=== PATIENT | female | born 2000 | race Hispanic/Latino ===

== ENCOUNTER 2018-11-08 06:43 | Outpatient (CLI) | payer OTHER ==
[2018-11-08 07:04] VITALS: BP 122/67
--- NOTE | 2018-11-08 08:33 | Event Note ---
Date: 11/08/18 Pt presents to triage with c/o cramping and abdominal pain. Reports slipping and falling down stairs at 10pm last night, but did not call provider or present to triage for evaluation d/t "not hurting". Pt reports intercourse at 1 am and noting small "quarter size" light pink vaginal bleeding after. Pt reports awaking again at 5 am and noting more, now red, vaginal bleeding, mild cramping at this time. Pt denies any LOF and reports +FM. Order for and uterine monitoring x2 hours, US for placental evaluation. Blood type is O+. SVE at curr ent /-3, membranes intact, small amount of light red blood noted on exam glove. Will continue to monitor.
[2018-11-08] MEDS ORDERED: LACTATED RINGERS 1,000 ML IV ONE (09:30)
--- NOTE | 2018-11-08 11:07 | Ultrasound Report ---
ULTRASOUND OB LIMITED History: Status post fall Technique: Transabdominal ultrasound with Doppler interrogation. Gestation: Single Position: Cephalic Amniotic Fluid: Appears decreased JENIFER = not measured Placenta: Anterior Placental Grade: 1 Heart Rate: 123 BPM Cervical length: Obscured
== END 2018-11-08 10:35 | disposition home or self-care (01) ==
LOC: TRG 06:43
PROVIDERS: ATTEND Obstetrics & Gynecology
DX: O47.1 False labor at or after 37 completed weeks of gestation (principal); O99.513 Diseases of the respiratory system complicating pregnancy, third trimester; J45.909 Unspecified asthma, uncomplicated; Z3A.39 39 weeks gestation of pregnancy
CPT/HCPCS: 59025; 76815

== ENCOUNTER 2018-11-18 08:40 | Inpatient (IN) | payer OTHER ==
--- NOTE | 2018-11-18 09:29 | History and Physical Report ---
History of Present Illness Date of examination: 11/18/18 Date of admission: 11/18/2018 Chief complaint: contractions History of present illness: Menstrual History Regularity: regular Menses every: irregular days Duration: 3 LMP: 01/21/2018 LMP reliability: month known LMP character: normal test type: urine test Date: 04/19/2018 BC at conception: none Planned ? yes EDC Calculations Past History : 2 Term Births: 0 Premature Births: 0 Living Children: 0 Para: 0 Aborta: 1 Spont. Ab: 1 # 1 Delivery date: 2015 Weeks Gestation: 14 Delivery type: SAB Delivery location: [place] Comments: No D&C Past Medical History: PCOS Endometriosis Hypoglycemia Past Surgical History: Negative Past Surgical History Family History Summary: Other family member - Has No Family History of Uterine Cancer - Entered On: 04/19/2018 Other family member - Has No Family History of Stomach Cancer - Entered On: 04/19/2018 Other family member - Has No Family History of Small Bowel Cancer - Entered On: 04/19/2018 Other family member - Has No Family History of Pancreatic Cancer - Entered On: 04/19/2018 Other family member - Has No Family History of Ovarvian Cancer - Entered On: 04/19/2018 Other family member - Has No Family History of Kidney/Urinary Tract Cancer - Entered On: 04/19/2018 Other family member - Has No Family History of Colon Cancer - Entered On: 04/19/2018 Other family member - Has No Family History of Breast Cancer - Entered On: 04/19/2018 Other family member - Has No Family History of Brain Cancer - Entered On: 04/19/2018 Other family member - Has No Family History of Biliary Tract Cancer - Entered On: 04/19/2018 Mother (biol.) - Has Family History of Spontaneous DVT-PE - Entered On: 04/19/2018 MGM - Has Family History of Lung Cancer - Entered On: 04/19/2018 General Comments - FH: Maternal aunt Back cancer maternal aunt NonHodgkins lymphoma Social History: Patient is single Smoking History: Patient currently smokes every day. Patient has been counseled to quit. Past Medical History Surgery (Non-authorization nurse): Negative Past Surgical History Abnormal PAP: negative Family Hx: Maternal aunt Back cancer maternal aunt NonHodgkins lymphoma Social Hx: Patient is single Smoking History: Patient currently smokes every day. Patient has been counseled to quit. Infection History Hx of STD: none Partner hx. of genital herpes: no Varicella/Chicken Pox Status: Immunized TB Risk: no Genetic History Congenital Heart Defect: Mom: no Dad: no Deysi Disease: Mom: no Dad: no Thalassemia Mom: no Dad: no Neural Tube Defect Mom: no Dad: no Down's Syndrome Mom: no Dad: no Rk-Sachs Mom: no Dad: no Sickle Cell Disease/Trait Mom: no Dad: no Hemophilia Mom: no Dad: no Muscular Dystrophy Mom: no Dad: no Cystic Fibrosis Mom: no Dad: no [place] Chorea Mom: no Dad: no Mental Retardation Mom: no Dad: no Fragile X Mom: no Dad: no Other Genetic/Chromosomal Disorder Mom: no Dad: no Child w/other defect Mom: no Dad: no Other: Autism Nephew and 1st coisin Enviromental Exposures Enviromental Exposures Reviewed Xray Exposure: no Medication, drug, or alcohol use since LMP: no Chemical/Other Exposure: no Exposure to Cat Liter: no Hx of Parvovirus (Fifth Disease): no Occupational Exposure to Children: none Comments: [email or web address], states she is exposed to her niece who is in Daycare Current Allergies (reviewed today): * BEE STINGS (Critical) Past History Past Medical History: other (see hpi) Past Surgical History: other (see hpi) 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 (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) Family/Genetic History: other (see hpi) Social history: other (see hpi) - Obstetrical History : 2 Para: 0 Medications and Allergies Allergies Allergy/AdvReac Type Severity Reaction Status Date / Time bee venom protein (honey bee) Allergy Unknown Verified 11/18/18 12:15 cyclobenzaprine AdvReac Unknown Verified 11/08/18 09:52 Home Medications Medication Instructions Recorded Confirmed Last Taken Type No Known Home Medications [No 07/23/18 11/08/18 Unknown History Reported Home Medications] Review of Systems All systems: negative (contractions, pain 5/10, "every 5-10 minutes") - Vital Signs Vital signs: Vital Signs Pulse BP 83 100/59 11/18/18 08:55 11/18/18 08:55 Temp Pulse Resp BP Pulse Ox 83 100/59 11/18/18 08:55 11/18/18 08:55 - Physical Exam Breasts: Positive: normal Cardiovascular: Regular rate, Normal S1, Normal S2 Lungs: Positive: Clear to auscultation Abdomen: Positive: normal appearance, soft, normal bowel sounds. Negative: distention, tenderness Genitourinary (Female): Positive: normal external genitalia, normal perenium Vulva: both: normal Vagina: Positive: normal moisture. Negative: discharge Cervix: Negative: lesion, discharge Uterus: Positive: normal size, normal contour Adnexa: both: normal Anus/Rectum: Positive: normal perianal skin, heme negative. Negative: rectal mass, hemorrhoids Extremities: Positive: normal Deep Tendon Reflex Grade: Normal +2 - Obstetrical FHR: auscultation normal, category 1 Uterine Contraction Monitor Mode: External Cervical Dilatation: 4 Cervical Effacement Percentage: 90 station: -2 Uterine Contraction Frequency (min): 3-6 Uterine Contraction Duration: 60-80 Uterine Contraction Pattern: Regular Uterine Tone Measurement Phase: Contraction Uterine Contraction Intensity: Mild Results Result Diagrams: 11/18/18 08:20 All other labs normal. Assessment and Plan 18 year old IUP at 40w4d presents to triage with c/o contractions "every 5- 10 minutes" since last night. Patient denies any LOF or vaginal bleeding. Reports +FM. SVE per manager corporate marketing /-2, category 1 tracing, ctx q3-5 minutes on TOCO, palpating mild-moderate. Admission orders placed. GBS negative. Anticipate .
[2018-11-18 09:58] LABS: Hemoglobin 12.2 gm/dl (10.1-14.3); Mean Corpuscular HGB Conc 33 % (30-34); Mean Corpuscular Volume 81 fl (79-97); Platelet Count 236 K/mm3 (140-440); Red Blood Count 4.58 M/mm3 (3.65-5.03); Red Cell Distribution Width 14.5 % (13.2-15.2)
[2018-11-18] MEDS ORDERED: ZOFRAN IV PRN (11:00)
[2018-11-18] MEDS ORDERED: BRETHINE IVP PRN (11:00)
[2018-11-18] MEDS ORDERED: PITOCin/NS 30 UNIT/500ML 30 UNITS/500 ML BAG IV SCH (11:00)
[2018-11-18] MEDS ORDERED: MINERAL OIL PO PRN (11:00)
[2018-11-18] MEDS ORDERED: XYLOCAINE 2% INFILTRATI NR (11:00)
[2018-11-18] MEDS ORDERED: LACTATED RINGERS 1,000 ML IV SCH ×2 (11:00→22:00)
[2018-11-18] MEDS ORDERED: PITOCin/NS 20 UNIT/1000ML DRIP 20 UNITS/1,000 ML BAG IV SCH (11:00)
[2018-11-18] MEDS ORDERED: BRETHINE SUB-Q PRN (11:00)
[2018-11-18] MEDS ORDERED: SUBLIMAZE IV PRN (11:00)
[2018-11-18] MEDS ORDERED: NARCAN 2 MG/2 ML IV PRN (12:16)
--- NOTE | 2018-11-18 12:16 | Anesthesia Consultation ---
Anesthesia Consult and Med Hx - Airway Anesthetic Teeth Evaluation: Good ROM Head & Neck: Adequate Mental/Hyoid Distance: Adequate Mallampati Class: Class III Intubation Access Assessment: Possibly Difficult - Pre-Operative Health Status ASA Pre-Surgery Classification: ASA3 Proposed Anesthetic Plan: Epidural, Spinal - Pulmonary Hx Smoking: Yes Hx Asthma: Yes (inhaler last used 1 month ago) - Cardiovascular System Hx Hypertension: No - Central Nervous System Hx Seizures: No Hx Psychiatric Problems: Yes (depression and anxiety) - Endocrine Hx Renal Disease: No Hx Hypothyroidism: No Hx Hyperthyroidism: No - Hematic Hx Anemia: No Hx Sickle Cell Disease: No - Other Systems Hx Alcohol Use: No Hx Obesity: Yes (BMI 44.8)
--- NOTE | 2018-11-18 12:55 | Event Note ---
Date: 11/18/18 Patient comfortable in bed s/p epidural placement. Pitocin currently infusing at 4mu/min. TOCO tracing irregular contractions, mild-moderate by palpation. Patient gives verbal consent for SROM and IUPC placement. SVE 5/100/-2, SROM performed, small amount of clear fluid noted. IUPC placed without difficulty. Will continue pitocin per order and current POC. Anticipate vaginal delivery.
[2018-11-18] MEDS: fentaNYL-BUPIV 2 MCG/ML-0.125% 200 MCG/100 ML BAG EPIDURAL SCH ×2 (13:07→21:09)
--- NOTE | 2018-11-18 17:44 | Event Note ---
Date: 11/18/18 variable decelerations noted. Pt lying flat on back in bed. Repositioned, pitocin decreased, FSE placed. SVE anterior lip, 0 station. FHTs recovering, no variable decelerations noted after interventions. Dr. Doll notified. Patient not feeling urge to push at this time, remains comfortable with epidural. Will continue to monitor.
[2018-11-18] MEDS ORDERED: XYLOCAINE MPF 2% ONE ×2 (20:22→22:45)
[2018-11-18] MEDS ORDERED: REGLAN IV ONE (21:48)
[2018-11-18] MEDS ORDERED: BICITRA PO ONE (21:48)
[2018-11-18] MEDS ORDERED: PEPCID IV ONE ×2 (21:48→21:50)
[2018-11-18] MEDS ORDERED: BICITRA ONE (21:50)
[2018-11-18] MEDS ORDERED: REGLAN ONE (21:50)
--- NOTE | 2018-11-18 21:58 | Event Note ---
Date: 11/18/18 Patient without change in cervix with repeated deep decelerations with pushing. Patient still at 0 station. Discussed with patient and indication for operative delivery.Patient informed the risks of the surgery include bleeding possibly bleeding heavy enough to require blood transfusion, infection possible damage to bowel bladder ureter. All questions answered. Patient agrees to proceed
[2018-11-18] MEDS ORDERED: ANCEF/STERILE WATER 2 GM/20 ML 2 GM/20 ML SYRINGE IV NR (22:00)
[2018-11-18] MEDS ORDERED: WATER FOR IRRIG STERILE IR ONE (22:33)
[2018-11-18] MEDS ORDERED: NACL 0.9% IR ONE (22:33)
[2018-11-18] MEDS ORDERED: ASTRAMORPH PF 10MG/10ML ONE (22:46)
--- NOTE | 2018-11-18 23:28 | Operative Report ---
Operative Report Operative Report: Date of procedure: 11/18/2018 Pre-operative diagnosis: Intrauterine at 40 weeks and 4 days. Failure of descent and nonreassuring heart tracing Post-operative diagnosis: Same Procedure name(s): Primary low transverse section Surgeon: Grabiel Doll MD Art Therapy Certified Supervisor: Anesthesia: Epidural EBL: 600 mL Complications: Laceration right uterine artery Findings: Patient with a normal uterus tubes and ovaries bilaterally. Female infant weight 7 lbs. 4 oz. Apgars 8 at 1 minute and 9 at 5 minutes Specimen(s): None Procedure: The patient was brought to the operating room. Her epidural was dosed without any complications. She was then placed in left lateral tilt. Prepped and draped in the usual sterile manner. After testing for adequate anesthesia level, a Pfannenstiel incision was made. This incision was taken down to the fascia. The fascia was then nicked in the midline. This incision was extended out laterally with Marie scissors. The fascia was then sharply and bluntly from the underlying rectus muscles. The rectus muscles were bluntly and sharply . The peritoneum was then entered with the needle punch operator's fingers. This incision was spread vertically with care not to damage the bladder below. The bladder flap was then formed sharply and bluntly with Metzenbaum scissors. The Ramón self-retaining tractor was then placed without any difficulty. A transverse incision was made in lower uterine segment. This incision was extended laterally with the operators fingers. The amniotic sac was then entered bluntly with the needle punch operator's fingers. The infant was deep in pelvis and delivered from the vertex position. Bulb suction on the mother's abdomen. Cord was double clamped and cut. The was then passed to the nursery personnel who were in attendance. The above scores were given by the nursery personnel. The placenta was then bluntly removed. The uterus was then externalized and wiped clean the remaining products. The laceration was identified and repaired with [id number] suture good hemostasis. The ne erine incision was closed in layers. The first incision was closed in a locking manner using 0 Vicryl. This was followed by imbricating stitch also with 0 Vicryl. This closure was hemostatic. The bladder flap was copiously irrigated and found to be hemostatic. The pelvis was copiously irrigated and found to be hemostatic. The uterus was then placed back to the patient's abdomen. The retractors were removed. The rectus muscles were inspected and found to be hemostatic. The fascia was then closed in a running manner using 0 Vicryl. This incision was hemostatic irrigation Bovie. The skin was reapproximated with 4-0 Vicryl subcuticularly. The patient tolerated procedure well. Her urine was clear. The infant was admitted to the well baby nursery. The patient was accompanied to recovery room in good condition. Instrument count correct times 3.
[2018-11-19] MEDS ORDERED: DILAUDID IM PRN (00:10)
[2018-11-19] MEDS ORDERED: DILAUDID IV PRN (00:10)
[2018-11-19] MEDS: TORADOL IV PRN ×2 (00:15→06:32)
[2018-11-19] MEDS ORDERED: TORADOL IV PRN (01:01)
[2018-11-19] MEDS ORDERED: MILK OF MAGNESIA PO PRN (01:01)
[2018-11-19] MEDS ORDERED: SODIUM CHLORIDE FLUSH SYRINGE 10 ML IV PRN (01:01)
[2018-11-19] MEDS ORDERED: LANSINOH TP PRN (01:01)
[2018-11-19] MEDS ORDERED: D5LR 1,000 ML IV SCH (01:01)
[2018-11-19] MEDS ORDERED: ZOFRAN IV PRN (01:01)
[2018-11-19] MEDS ORDERED: PITOCin/NS 20 UNIT/1000ML DRIP 20 UNITS/1,000 ML BAG IV SCH (01:01)
[2018-11-19] MEDS ORDERED: TUCKS PAD TP PRN (01:01)
[2018-11-19] MEDS ORDERED: NARCAN 0.4 MG/1 ML IV PRN (01:01)
[2018-11-19] MEDS ORDERED: NUBAIN IV PRN (02:20)
[2018-11-19] MEDS: ANCEF/NS 1 GM/50 ML 1 GM/50 ML BAG IV SCH ×2 (05:24→15:31)
[2018-11-19] MEDS ORDERED: BOOSTRIX IM ONE (06:13)
--- NOTE | 2018-11-19 08:19 | Progress Note ---
Assessment and Plan Patient doing well, desai to BSB with adequate output. pt has not yet ambulated, H&H ordered for later this morning. VSSAF. patient's pain well managed at this time. Dressing D&I. Patient instructed on importance of using ISS 10x per hour while awake to avoid postop complication. also instructed patient she is to ambulate once desai d/c'd later this AM. All questions addressed. Continue postop pathway. - Patient Problems (1) delivery delivered Current Visit: Yes Status: Acute Subjective - Subjective Date of service: 11/19/18 Principal diagnosis: postop day #1 <12hrs post delivery Patient reports: pain well controlled, no flatus, no nauseated [place]: doing well Objective - Vital Signs Latest vital signs: Vital Signs Temp Pulse Resp BP BP Pulse Ox 11/19/18 08:02 98.2 F 97 H 18 101/54 94 11/19/18 03:55 98.5 F 82 18 101/51 11/19/18 01:12 99.8 F H 78 18 112/67 95 11/19/18 00:31 71 15 115/60 94 11/19/18 00:16 75 11 L 127/70 94 11/19/18 00:01 74 16 119/61 92 11/18/18 23:46 86 18 128/61 92 11/18/18 23:41 80 21 120/54 95 11/18/18 23:36 82 20 122/47 94 11/18/18 23:31 98.6 F 81 20 111/41 96 11/18/18 22:04 95 H 98 11/18/18 22:03 97 H 92 11/18/18 21:59 82 99 11/18/18 21:54 87 99 11/18/18 21:49 88 97 11/18/18 21:44 84 99 11/18/18 21:39 88 100 11/18/18 21:34 80 99 11/18/18 21:29 91 H 99 11/18/18 21:28 79 L 11/18/18 21:01 91 H 84 11/18/18 21:00 92 H 97 11/18/18 20:55 85 98 11/18/18 20:53 85 94 11/18/18 20:50 85 97 11/18/18 20:45 87 96 11/18/18 20:40 86 98 02/28/19 20:35 90 99 11/18/18 20:30 99 H 100 11/18/18 20:25 95 H 99 11/18/18 20:20 90 99 11/18/18 20:15 82 100 11/18/18 20:10 84 98 11/18/18 20:05 88 99 11/18/18 20:00 86 98 11/18/18 19:55 85 100 11/18/18 19:50 92 H 99 11/18/18 19:45 99 H 99 11/18/18 19:40 102 H 96 11/18/18 19:35 88 99 11/18/18 19:30 123 H 98 11/18/18 19:25 73 97 11/18/18 19:20 137 H 96 11/18/18 19:16 127 H 83 L 11/18/18 19:15 100 H 98 11/18/18 19:10 97 H 100 11/18/18 19:05 92 H 98 11/18/18 19:04 97 H 125/57 11/18/18 18:58 93 H 126/63 11/18/18 18:05 97.8 F 18 11/18/18 17:31 98 H 95 11/18/18 17:26 85 96 11/18/18 17:21 84 95 11/18/18 17:16 80 96 11/18/18 17:11 89 95 11/18/18 17:06 81 95 11/18/18 17:01 75 95 11/18/18 16:56 77 95 11/18/18 16:51 70 95 11/18/18 16:46 78 95 11/18/18 16:41 91 H 95 11/18/18 16:40 77 122/60 11/18/18 16:36 84 95 11/18/18 16:31 93 H 95 11/18/18 16:26 92 H 94 11/18/18 16:21 80 94 11/18/18 16:16 84 95 11/18/18 16:15 79 94 11/18/18 16:11 78 95 11/18/18 16:08 111 H 94 11/18/18 16:06 84 96 11/18/18 16:01 86 95 11/18/18 16:00 92 H 94 11/18/18 15:56 83 96 11/18/18 15:51 87 95 11/18/18 15:46 86 95 11/18/18 15:45 97.9 F 16 11/18/18 15:41 88 135/78 95 11/18/18 15:36 86 95 11/18/18 15:31 102 H 95 11/18/18 15:26 80 95 11/18/18 15:21 99 H 84 11/18/18 15:16 83 94 11/18/18 15:13 79 94 11/18/18 15:11 85 95 11/18/18 15:10 80 122/56 11/18/18 15:06 79 95 11/18/18 15:01 85 95 11/18/18 15:00 97.8 F 93 H 18 125/57 99 11/18/18 14:56 79 94 11/18/18 14:55 74 94 11/18/18 14:51 78 95 11/18/18 14:47 94 H 94 11/18/18 14:46 85 95 11/18/18 14:41 84 117/56 95 11/18/18 14:36 94 H 96 11/18/18 14:32 89 94 11/18/18 14:31 94 H 95 11/18/18 14:27 98 H 94 11/18/18 14:26 87 95 11/18/18 14:21 84 95 11/18/18 14:16 86 97 11/18/18 14:11 98 H 128/73 95 11/18/18 14:06 93 H 96 11/18/18 14:01 94 H 96 11/18/18 13:56 85 97 11/18/18 13:51 74 96 11/18/18 13:46 75 95 11/18/18 13:41 87 122/63 97 11/18/18 13:36 77 96 11/18/18 13:31 82 97 11/18/18 13:26 77 96 11/18/18 13:21 85 97 11/18/18 13:16 89 96 11/18/18 13:15 97.9 F 16 11/18/18 13:11 85 96 11/18/18 13:09 81 120/58 11/18/18 13:07 86 117/56 11/18/18 13:06 77 96 11/18/18 13:05 80 116/57 11/18/18 13:03 81 118/60 11/18/18 13:01 82 121/59 97 11/18/18 12:59 87 119/57 11/18/18 12:57 86 120/61 11/18/18 12:56 80 97 11/18/18 12:55 82 124/58 11/18/18 12:53 82 121/55 11/18/18 12:51 82 115/58 96 11/18/18 12:49 74 117/56 11/18/18 12:47 80 126/65 11/18/18 12:46 89 96 11/18/18 12:45 80 123/62 11/18/18 12:43 81 121/63 11/18/18 12:41 92 H 119/62 96 11/18/18 12:39 86 120/59 11/18/18 12:37 73 115/68 11/18/18 12:36 74 97 11/18/18 12:35 71 116/59 11/18/18 12:31 71 97 11/18/18 12:26 76 97 11/18/18 12:21 78 98 11/18/18 12:16 89 96 11/18/18 12:11 93 H 96 11/18/18 12:06 82 96 11/18/18 12:01 77 96 11/18/18 11:56 80 96 11/18/18 11:51 83 97 11/18/18 11:46 88 95 11/18/18 11:44 78 94 11/18/18 11:41 83 96 11/18/18 11:36 76 94 11/18/18 11:31 83 95 11/18/18 11:26 81 95 11/18/18 11:25 79 94 11/18/18 11:21 86 94 11/18/18 11:18 81 94 11/18/18 11:16 89 93 11/18/18 11:12 87 94 11/18/18 11:11 80 95 11/18/18 11:06 83 96 11/18/18 11:01 85 97 11/18/18 10:56 81 96 11/18/18 10:51 87 98 11/18/18 10:46 82 97 11/18/18 10:41 85 97 11/18/18 10:36 97 H 97 11/18/18 10:31 84 96 11/18/18 10:26 97.5 F L 93 H 18 96 11/18/18 10:21 90 97 11/18/18 10:16 91 H 95 11/18/18 10:13 110 H 94 11/18/18 10:11 90 96 11/18/18 10:06 95 H 116/69 96 11/18/18 10:01 93 H 96 11/18/18 09:56 95 H 96 11/18/18 09:51 85 97 11/18/18 09:46 90 96 11/18/18 08:55 98.1 F 83 16 100/59 100/59 Intake and Output 11/18/18 11/19/18 11/19/18 23:59 07:59 15:59 Intake Total 69.267 600 Output Total 800 Balance 69.267 -200 Intake: IV 69.267 PITOCin/NS 30 UNIT/500ML 69.267 30 units In 500 ml @ 4 mls/hr IV TITR WENDIE Rx#: [id number] Intake, Free Water 600 Output: Urine 800 Indwelling Catheter 800 Other: Total, Output Amount 800 - Exam Breasts: Present: normal Cardiovascular: Present: Regular rate Lungs: Present: Clear to auscultation, Normal air movement Abdomen: Present: normal appearance, soft Vulva: both: normal Uterus: Present: normal, firm, fundal height at umbilicus Extremities: Present: normal Incision: Present: normal, dry, dressed - Labs Labs: Abnormal lab results 11/18/18 Range/Units 08:20 MCH 27 L (28-32) pg
[2018-11-19] MEDS ORDERED: PRENATAL VITAMIN PO SCH (10:00)
[2018-11-19 13:33] LABS: Hematocrit 27.5 % (30.3-42.9); Hemoglobin 8.9 gm/dl (10.1-14.3)
[2018-11-19] MEDS: IBUPROFEN PO PRN (18:08)
[2018-11-19] MEDS: NORCO 5/325 PO PRN (18:08)
[2018-11-20] MEDS: NORCO 5/325 PO PRN ×2 (00:35→10:33)
[2018-11-20] MEDS: IBUPROFEN PO PRN ×2 (00:36→12:45)
--- NOTE | 2018-11-20 08:30 | Discharge Summary ---
Providers - Providers Date of Admission: 11/18/18 08:41 Date of discharge: 11/20/18 (pt desires d/c if possible) Attending physician: NAHUN CASTRO Primary care physician: NAHUN CASTRO Hospitalization Reason for admission: active labor Delivery: Procedure: primary low transverse Episiotomy: none Laceration: none Incision: normal, dry, intact Other procedures: none complications: none Discharge diagnosis: IUP at term delivered baby: female Hospital course: Pt resting in bed No c/o voiced Desires d/c VSS FF below umb Lochia scant Incision D&I H&H stable No s/sx of anemia Doing well s/p primary c/s P: d/c today with instructions RTO 1 week for postop care. Condition at discharge: Good Disposition: DC-01 TO HOME OR SELFCARE - Discharge Diagnoses (1) delivery delivered Status: Acute Comment: RTO 1 week post op care Plan - Discharge Medications Prescriptions: Ferrous Sulfate [Feosol 325 MG tab] 325 mg PO BID #60 tablet Ibuprofen [Motrin 800 MG tab] 800 mg PO Q6H PRN #30 tablet PRN Reason: Pain oxyCODONE /ACETAMINOPHEN [Percocet 5/325 mg] 1 - 2 tab PO Q4H PRN #20 tablet PRN Reason: Pain, Moderate - Provider Discharge Summary Activity: routine, no sex for 6 weeks, no heavy lifting 4 weeks, no strenuous exercise Diet: routine Instructions: routine Additional instructions: [] Smoking cessation referral if applicable(refer to patient education folder for contact #) [] Refer to [facility] Booklet Call your doctor immediately for: * Fever > 100.5 * Heavy vaginal bleeding ( >1 pad per hour) * Severe persistent headache * Shortness of breath * Reddened, hot, painful area to leg or breast * Drainage or odor from incision. * Keep incision clean and dry at all times and follow doctor's instructions reg arding bathing/showering - Follow up plan Follow up: NAHUN CASTRO MD [Primary Care Provider] - 7 Days (Congratulations! Please call [phone] to schedule your postoperative visit in one week. Take medications as prescribed. Call with any concerns.)
[2018-11-20 09:00] VITALS: BP 129/75
--- NOTE | 2018-11-25 11:07 | Query-Anemia ---
Sg Stephenson____Lavon Date:____11/25/18 For[place] Hand/CDS:____Zbigniew/Tamela Phone#:___[phone] Exercise your independent professional judgment when responding to this query. Questions asked do not imply a particular answer is desired or expected. We greatly appreciate your clarification on this issue. Clinical Documentation States: 18 year old IUP at 40w4d presents to triage with c/o contractions "every 5- 10 minutes". Operative Report: Operative Report: Date of procedure: 11/18/2018 Pre-operative diagnosis: Intrauterine at 40 weeks and 4 days. Failure of descent and nonreassuring heart tracing Post-operative diagnosis: Same Procedure name(s): Primary low transverse section Surgeon: Grabiel Doll MD EBL: 600 mL Complications: Laceration right uterine artery Findings: Patient with a normal uterus tubes and ovaries bilaterally. Female weight 7 lbs. 4 oz. Apgars 8 at 1 minute and 9 at 5 minutes Clinical Findings Show: 11/18/18 11/19/18 Hgb 12.2 8.9 Hct 37.0 27.5 Etiology: [x ] Anemia due to acute blood loss [ ] Anemia due to chronic blood loss [ ] Anemia secondary to ESRD [ ] Anemia secondary to neoplastic disease [ ] Iron deficiency anemia due to malabsorption [ ] GI Bleed from: [ ] Anemia of chronic disease ,Other: [ ] Precipitous Drop in Hemoglobin [ ] Precipitous Drop in Hematocrit [ ] Other: [ ] Unable to determine [ ] Comment/Explanation: Present on Admission: [ ] Yes (Y) [ ] Clinically undeterminable (W) [ x] No (N) Please also document response in your Progress Notes and/or Discharge Summary and indicate if the condition was present on admission. [facility]
== END 2018-11-20 15:05 | disposition home or self-care (01) | DRG 765 ==
LOC: TRG 08:40 → LD 08:41 → TRG 10:09 → OB 11-19 01:05
PROVIDERS: ADMIT Obstetrics & Gynecology; ATTEND Obstetrics & Gynecology
PROC: 10H07YZ Insertion of Other Device into Products of Conception, Via Natural or Artificial Opening (ICD-10-PCS; 2018-11-17)
PROC: 10D00Z1 Extraction of Products of Conception, Low, Open Approach (ICD-10-PCS; principal; 2018-11-18)
PROC: 3E0234Z Introduction of Serum, Toxoid and Vaccine into Muscle, Percutaneous Approach (ICD-10-PCS; 2018-11-18)
DX: O99.334 Smoking (tobacco) complicating childbirth (principal); D62 Acute posthemorrhagic anemia; O99.52 Diseases of the respiratory system complicating childbirth; Z37.0 Single live birth; J45.909 Unspecified asthma, uncomplicated; F17.200 Nicotine dependence, unspecified, uncomplicated; F32.9 Major depressive disorder, single episode, unspecified; F41.9 Anxiety disorder, unspecified; E66.9 Obesity, unspecified; O76 Abnormality in fetal heart rate and rhythm complicating labor and delivery; O62.1 Secondary uterine inertia; O99.344 Other mental disorders complicating childbirth; O99.214 Obesity complicating childbirth; O71.89 Other specified obstetric trauma; Z80.1 Family history of malignant neoplasm of trachea, bronchus and lung; Z84.89 Family history of other specified conditions; Z80.7 Family history of other malignant neoplasms of lymphoid, hematopoietic and related tissues; Z88.8 Allergy status to other drugs, medicaments and biological substances; Z91.030 Bee allergy status; Z3A.40 40 weeks gestation of pregnancy; Z23 Encounter for immunization
CPT/HCPCS: 36415; 85014; 85018; 85027; 86592; 86850; 86900; 86901; 90471; 90715; G0378; J0690; J1885; J2274; J2300; J2590; J2765; J3010; J7120; J7121